=== PATIENT | female | born 1970 | race American Indian/Alaskan Native ===

== ENCOUNTER 2019-08-31 03:11 | Emergency (ER) | payer BC ==
[2019-08-31 03:24] VITALS: BP 150/72
[2019-08-31] MEDS ORDERED: IBUPROFEN 800 MG TAB ONE (06:06)
[2019-08-31] MEDS ORDERED: IBUPROFEN 800 MG TAB PO ONE (06:08)
--- NOTE | 2019-08-31 07:23 | Emergency Department Report ---
ED ENT HPI - General Chief complaint: Dental/Oral Stated complaint: CAR Time Seen by Provider: 08/31/19 07:12 Source: patient Mode of arrival: Ambulatory Limitations: No Limitations - History of Present Illness Initial comments: This is a 49-year-old -French female who presents to the emergency room with left-sided dental pain and facial swelling since last night. Patient states she had a cavity in tooth #31 with no dental follow-up. She reports intermittent pain for several weeks that worsen last night. She reports constant throbbing pain and swelling. She denies dysphagia, sore throat, fever, or chills. MD complaint: tooth pain -: Last night Location: tooth # (31) Severity: severe Severity scale (0 -10): 10 Quality: other (throbbing) Consistency: constant Improves with: none Worsens with: eating Context- Dental: history of dental caries, poor dental care Associated Symptoms: gum swelling, toothache. denies: fever, pain with swallowing, sore throat, hearing loss - Related Data Previous Rx's Medication Instructions Recorded Last Taken Type Amoxicillin [Trimox CAP] 500 mg PO Q8H #21 capsule 08/31/19 Unknown Rx Chlorhexidine Mouthwash [Peridex] 15 ml MM BID #1 bottle 08/31/19 Unknown Rx traMADoL [Ultram 50 MG tab] 50 mg PO Q6HR PRN #12 tablet 08/31/19 Unknown Rx Allergies Allergy/AdvReac Type Severity Reaction Status Date / Time No Known Allergies Allergy Verified 08/31/19 06:10 ED Dental HPI - General Chief complaint: Dental/Oral Stated complaint: CAR Time Seen by Provider: 08/31/19 07:12 Source: patient Mode of arrival: Ambulatory Limitations: No Limitations - Related Data Previous Rx's Medication Instructions Recorded Last Taken Type Amoxicillin [Trimox CAP] 500 mg PO Q8H #21 capsule 08/31/19 Unknown Rx Chlorhexidine Mouthwash [Peridex] 15 ml MM BID #1 bottle 08/31/19 Unknown Rx traMADoL [Ultram 50 MG tab] 50 mg PO Q6HR PRN #12 tablet 08/31/19 Unknown Rx Allergies Allergy/AdvReac Type Severity Reaction Status Date / Time No Known Allergies Allergy Verified 08/31/19 06:10 ED Review of Systems ROS: Stated complaint: CAR Other details as noted in HPI Constitutional: denies: chills, fever ENT: dental pain. denies: ear pain, throat pain Respiratory: denies: cough, shortness of breath, wheezing Cardiovascular: denies: chest pain, palpitations Gastrointestinal: denies: abdominal pain, nausea, diarrhea Musculoskeletal: denies: back pain, joint swelling, arthralgia Skin: denies: rash, lesions Neurological: denies: headache, weakness, paresthesias Psychiatric: denies: anxiety, depression ED Past Medical Hx - Past Medical History Previous Medical History?: No - Surgical History Past Surgical History?: No - Social History Smoking Status: Never Smoker - Medications Home Medications: Home Medications Medication Instructions Recorded Confirmed Last Taken Type Amoxicillin [Trimox CAP] 500 mg PO Q8H #21 capsule 08/31/19 Unknown Rx Chlorhexidine Mouthwash [Peridex] 15 ml MM BID #1 bottle 08/31/19 Unknown Rx traMADoL [Ultram 50 MG tab] 50 mg PO Q6HR PRN #12 tablet 08/31/19 Unknown Rx ED Physical Exam - General Limitations: No Limitations General appearance: alert, in no apparent distress, obese - ENT ENT exam: Present: normal orophraynx, mucous membranes moist, TM's normal bilaterally, normal external ear exam, other (Gingival swelling around #31, TTP, palpated abscess, no drainage) - Neck Neck exam: Present: normal inspection - Respiratory Respiratory exam: Present: normal lung sounds bilaterally. Absent: respiratory distress - Cardiovascular Cardiovascular Exam: Present: regular rate, normal rhythm. Absent: systolic mu rmur, diastolic murmur, rubs, gallop - GI/Abdominal GI/Abdominal exam: Present: soft, normal bowel sounds - Neurological Exam Neurological exam: Present: alert, oriented X3 - Expanded Neurological Exam Expanded Patient oriented to: Present: person, place, time Speech: Present: fluid speech Cranial nerves: EOM's Intact: Normal, Gag Reflex: Normal, Tongue Deviation: Normal, Facial Sensation: Normal, Facial Palsy with Forehead Movement: Normal, Facial Palsy without Forehead Movement: Normal - Psychiatric Psychiatric exam: Present: normal affect, normal mood - Skin Skin exam: Present: warm, dry, intact, normal color. Absent: rash ED Course Vital Signs 08/31/19 08/31/19 03:16 06:21 Temperature 97.5 F L Pulse Rate 68 Respiratory 18 20 Rate Blood Pressure 150/72 O2 Sat by Pulse 100 Oximetry ED Medical Decision Making - Lab Data Result diagrams: 08/31/19 06:49 08/31/19 06:49 Lab Results 08/31/19 08/31/19 Range/Units 06:49 06:49 WBC 7.2 (4.5-11.0) K/mm3 RBC 4.23 (3.65-5.03) M/mm3 Hgb 12.2 (10.1-14.3) gm/dl Hct 37.8 (30.3-42.9) % MCV 89 (79-97) fl MCH 30 (28-32) pg MCHC 33 (30-34) % RDW 13.4 (13.2-15.2) % Plt Count 249 (140-440) K/mm3 Sodium 138 (137-145) mmol/L Potassium 3.9 (3.6-5.0) mmol/L Chloride 103.1 (98-107) mmol/L Carbon Dioxide 21 L (22-30) mmol/L Anion Gap 18 mmol/L BUN 17 (7-17) mg/dL Creatinine 0.8 (0.7-1.2) mg/dL Estimated GFR > 60 ml/min BUN/Creatinine Ratio 21 % Glucose 96 (65-100) mg/dL Calcium 9.1 (8.4-10.2) mg/dL - Radiology Data Radiology results: report reviewed SOFT TISSUE NECK CT 08/31/2019 HISTORY: throat pain and swelling PT HAS A LEFT ABCESSED TOOTH 100 ML OMNI 300 FINDINGS: Contrast enhanced CT images of the soft tissues of the neck were obtained. There is no evidence of abnormal neck mass, fluid collection, or soft tissue inflammation. There is no evidence of airway compromise or extrinsic compression. A few scattered normal-sized and appearing lymph nodes are present bilaterally. There is a normal CT appearance to the parotid and submandibular glands. Thyroid gland is unremarkable. Bone windows demonstrate evidence of periodontal disease, including periodontal lucencies associated with the roots of several maxillary teeth and right mandibular molar. IMPRESSION: 1. No evidence of abnormal neck mass or fluid collection. 2. Periodontal disease. - Medical Decision Making This is a 49-year-old female that presents with right lower dental pain and right-sided facial swelling since last night. No significant past medical history. Patient is stable and was examined by me. Given norco once in ER. Labs and CT of neck obtained. All labs are unremarkable. 1. No evidence of abn ormal neck mass or fluid collection. 2. Periodontal disease. Start Peridex mouthwash, tramadol, and amoxicillin. Discussed plan with patient. She agreed with ER plan. Referral to emergency dental for continued care. Discharged home stable. Critical care attestation.: If time is entered above; I have spent that time in minutes in the direct care of this critically ill patient, excluding procedure time. ED Disposition Clinical Impression: Periodontal disease, Toothache, Dental caries Disposition: TO HOME OR SELFCARE Is pt being admited?: No Condition: Stable Instructions: Toothache (ED) Additional Instructions: Complete full course of antibiotics as prescribed. Take Tylenol, ibuprofen, or naproxen [id number] for pain. Take trauma doll pain medication as needed for breakthrough pain. Follow up with a dentist from the referrals list for continued care. Prescriptions: Chlorhexidine Mouthwash [Peridex] 15 ml MM BID #1 bottle Amoxicillin [Trimox CAP] 500 mg PO Q8H #21 capsule traMADoL [Ultram 50 MG tab] 50 mg PO Q6HR PRN #12 tablet PRN Reason: Pain Referrals: KATIE CARVER MD [Primary Care Provider] - 3-5 Days [facility] [Outside] - 3-5 Days [facility] [Outside] - 3-5 Days [facility] [Outside] - 3-5 Days Forms: Work/School Release Form(ED), Accompanied Note Time of Disposition: 09:18
[2019-08-31 07:26] LABS: Hemoglobin 12.2 gm/dl (10.1-14.3)
[2019-08-31 07:40] LABS: Hematocrit 37.8 % (30.3-42.9); Mean Corpuscular HGB Conc 33 % (30-34); Mean Corpuscular Volume 89 fl (79-97); Platelet Count 249 K/mm3 (140-440); Red Blood Count 4.23 M/mm3 (3.65-5.03); Red Cell Distribution Width 13.4 % (13.2-15.2)
[2019-08-31 07:49] LABS: BUN/Creatinine Ratio 21; Blood Urea Nitrogen 17 mg/dL (7-17); Calcium 9.1 mg/dL (8.4-10.2); Hemolysis Index 3
--- NOTE | 2019-08-31 08:30 | Cat Scan Report ---
SOFT TISSUE NECK CT 08/31/2019 HISTORY: throat pain and swelling PT HAS A LEFT ABCESSED TOOTH 100 ML OMNI 300 FINDINGS: Contrast enhanced CT images of the soft tissues of the neck were obtained. There is no evidence of abnormal neck mass, fluid collection, or soft tissue inflammation. There is n o evidence of airway compromise or extrinsic compression. A few scattered normal-sized and appearing lymph nodes are present bilaterally. There is a normal CT appearance to the parotid and submandibular glands. Thyroid gland is unremarkabl e. Bone windows demonstrate evidence of periodontal disease, including periodontal lucencies associated with the roots of several maxillary teeth and right mandibular molar. IMPRESSION: 1. No evidence of abnormal neck mass or fluid collection. 2. Periodontal disease. All CT scans at this location are performed using dose reduction to ALARA by means of automated expos ure control. Signer Name: Enzo Camejo MD Signed: 08/31/2019 8:25 AM Workstation Name: [id number]
[2019-08-31] MEDS ORDERED: HYDROcodone/ACETAMINOPHEN 5-325 MG TAB PO ONE (09:16)
== END 2019-08-31 09:40 | disposition home or self-care (01) ==
LOC: ED 03:11
DX: K02.9 Dental caries, unspecified (principal); K05.6 Periodontal disease, unspecified
CPT/HCPCS: 36415; 70491; 80048; 85027; 99284; Q9967